=== PATIENT | male | born 2000 | race Caucasian/White ===

== ENCOUNTER 2021-09-03 16:59 | Emergency (ER) | payer OTHER, SELFPAY ==
--- NOTE | ~2021-09-03 | XR_ITS ---
EXAMINATION: XR lumbar spine 2-3V DATE: 09/03/2021 17:31 INDICATION: 10 days of low back pain TECHNIQUE: Anteroposterior and lateral views of the lumbar spine, and cone-down lateral view of the l umbosacral junction were obtained. COMPARISON: None. FINDINGS: Bilateral hypoplastic riblets at a for purposes of this report will be designated L1. There are 4 mor e caudal nonrib-bearing lumbar segments L2-L5. There is straightening of the normal lumbar lordosis. Alignment is otherwise normal. Vertebral body heights are normal. Disc heights are normal. Sacrum and bilateral sacral iliac joints are normal. Normal bowel gas pattern. IMPRESSION: 1. Transitional L1 segment and straightening of the normal lumbar lordosis. Reviewed, dictated and finalized at location A. [employer] REPRESENTATIVE
[2021-09-03 17:15] VITALS: BP 157/75; PULSE 63; RESP 18; TEMP 36.9; O2SAT 100
--- NOTE | 2021-09-03 17:17 | ED.LOWEXIN ---
HPI - Extremity Injury (Lower) General Chief Complaint: Back Pain/Injury Stated Complaint: Back pain and left ankle Time Seen by Provider: 09/03/21 17:17 History of Present Illness HPI Narrative: 21-year-old male presents to the [facility] with complaints of lower back pain. Called his primary and was referred to the [facility]. No known injury. States that when he does sit ups and runs that the pain gets worse also when he changes position from sitting to standing. 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 States that sometimes when he sits for prolonged periods of time that the pain feels like the back is stuck. Denies taking anything for pain or to help with the symptoms Denies any numbness or tingling in extremities. Denies any loss or retention of bowel or bladder. Denies any abdominal pain or chest pain. When asked about his left ankle, patient states it is fine. Related Data Allergies Allergy/AdvReac Type Severity Reaction Status Date / Time No Known Allergies Allergy Verified 09/03/21 17:14 Review of Systems Review of Systems: All systems reviewed & are unremarkable except as noted in HPI and below Constitutional: Constitutional: Reports no additional constitutional complaints, Denies chills and Denies fever(s) Eyes: Eyes: Reports no additional eye complaints ENT: Reports system reviewed and no additional complaints, except as documented Cardiovascular: Cardiovascular: Reports no additional cardiovascular complaints and Denies chest pain Respiratory: Respiratory: Reports no additional respiratory complaints, Denies cough and Denies dyspnea Gastrointestinal: Gastrointestinal: Reports no additional gastrointestinal complaints, Denies abdominal pain, Denies diarrhea, Denies nausea and Denies vomiting Genitourinary: Genitourinary: Reports no additional male genitourinary complaints and Denies urinary incontinence Musculoskeletal: Musculoskeletal: Reports as per HPI and Reports back pain (Lumbar) Integumentary/Breasts: Skin/Breast: Reports system reviewed and no additional complaints, except as docu Neurologic: Reports system reviewed and no additional complaints, except as documented Psychiatric: Psychiatric: Reports no additional psychiatric complaints Allergic/Immunologic: Allergic/Immunologic: Reports no additional allergic/immunologic complaints [facility] Past Medical History Medical History (Updated 09/03/21 @ 18:23 by Claudia Lira) Patient denies medical problems Surgical History Surgical History (Updated 09/03/21 @ 18:23 by Claudia Lira) No significant past surgical history Social History Social History (Updated 09/03/21 @ 18:24 by Claudia Lira) Living arrangements: with family Occupation/Education: occupation Additional occupation/education comments: Gender identity (if verbalized by the patient): Male Comments At the time of my signature, I reviewed and agree with the nursing past medical, surgical, social, and family history. There is no relevant family history pertinent to the patient complaint. Exam Const: General: healthy appearing, no acute distress and alert Nutritional Appearance: well nourished Orientation/consciousness: patient oriented x3 Limitations: no limitations HENMT: Head: normal to inspection Eyes: Conjunctivae: conjunctivae normal Pupils: Equal, round and reactive pupils present Neck: Neck: normal visual inspection, no lymphadenopathy and no meningeal signs Chest: Chest palpation & inspection: normal inspection of the chest Resp: Effort & Inspection: normal respiratory effort and no use of accessory muscles Auscultation: clear to auscultation bilaterally Cardio: Rate: regular rate Rhythm: regular rhythm GI: GI Palp: Yes Soft to palpation and No Tenderness to palpation present (GI) Back/Spine/Pelvis: Back: no CVA tenderness Cervical Spine: normal cervical lordosis Thoracic/Lumbar Spine: thoracic and lumb
== END 2021-09-03 18:00 | disposition home or self-care (01) ==
PROVIDERS: Emergency Provider Nurse Practitioner
DX: S39.012A Strain of muscle, fascia and tendon of lower back, initial encounter (principal); X58.XXXA Exposure to other specified factors, initial encounter
CPT/HCPCS: 72100; 99203; G0463